=== PATIENT | male | born 1975 | race Caucasian/White ===

== ENCOUNTER 2016-06-17 10:25 | Day surgery (SDC) | payer BC ==
--- NOTE | ~2016-06-17 | EGD ---
EGD REPORT [facility] [address] [address] NAME: DEONDRE ALVES : [birth year] STATUS : REG [facility]#: [id number] AGE: 41 ADM/REG DATE : 06/17/16 MR#: [id number] REPORT SERV DATE: 06/17/16 DICTATED BY: NEGRO QUEEN DATE: 06/17/16 REPORT STATUS : Draft [facility]: [facility] DATE: 06/17/16 Endoscopy Center Patient Name: Deondre Alves Date of : 1975 Attending MD: NEGRO QUEEN MD Procedure Date No Time: 06/17/2016 Procedure: Upper GI endoscopy Indications: Abdominal pain in the left upper quadrant, Heartburn, Suspected esophageal reflux Medicines: as per anesthesia Complications: No immediate complications. Procedure: Pre-Anesthesia Assessment: - ASA Grade Assessment: I - A normal, healthy patient. After obtaining informed consent, the endoscope was passed under direct vision. Throughout the procedure, the patient's blood pressure, pulse, and oxygen saturations were monitored continuously. The GIF H190 [id number] was introduced through the mouth, and advanced to the third part of duodenum. The upper GI endoscopy was accomplished without difficulty. The patient tolerated the procedure well. Findings: The examined esophagus was normal. A single small papule (nodule) with was found in the gastric antrum. The cardia and gastric fundus were normal on retroflexion. The examined duodenum was normal. Impression: - Normal esophagus. - A single small papule (nodule) with was found in the stomach. - Normal examined duodenum. Recommendation: - Perform an endoscopic ultrasound (EUS). Procedure Code(s): --- Professional --- 67647, Esophagogastroduodenoscopy, flexible, transoral; diagnostic, including collection of specimen(s) by brushing or washing, when performed (separate procedure) Diagnosis Code(s): --- Professional --- K31.9, Disease of stomach and duodenum, unspecified R10.12, Left upper quadrant pain R12, Heartburn EGD REPORT [facility] [address] [address] NAME: DEONDRE ALVES : [birth year] STATUS : REG [facility] PAT#: [id number] AGE: 41 ADM/REG DATE : 06/17/16 MR#: [id number] REPORT SERV DATE: 06/17/16 DICTATED BY: NEGRO QUEEN. DATE: 06/17/16 REPORT STATUS : Draft TRANSCRIBED BY: [employer] DATE: 06/17/16 CPT copyright 2013 [employer]. All rights reserved. The codes documented in this report are preliminary and upon graphics software engineer review may be revised to meet current compliance requirements. NEGRO QUEEN MD 06/17/2016 1:39 PM This report has been signed electronically. Number of Addenda: 0 Note Initiated On: 06/17/2016 1:14 PM Scope Withdrawal Time 0 hours 0 minutes 0 seconds [id number] [id number]
--- NOTE | ~2016-06-17 | EGD ---
EGD REPORT [facility] [address] [place] [address] NAME: DEONDRE ALVES : [birth year] STATUS : REG [facility]#: [id number] AGE: 41 ADM/REG DATE : 06/17/16 MR#: [id number] REPORT SERV DATE: 06/17/16 DICTATED BY: NEGRO QUEEN DATE: 06/17/16 REPORT STATUS : Draft TRANSCRIBED BY: [employer] DATE: 06/17/16 Endoscopy Center Patient Name: Deondre Alves Date of : 1975 Attending MD: NEGRO QUEEN MD Procedure Date No Time: 06/17/2016 Procedure: Colonoscopy Indications: Abdominal pain in the left lower quadrant, FH of Colon Cancer -distant relative Medicines: as per anesthesia Complications: No immediate complications. Procedure: Pre-Anesthesia Assessment: - ASA Grade Assessment: I - A normal, healthy patient. After I obtained informed consent, the scope was passed under direct vision. Throughout the procedure, the patient's blood pressure, pulse, and oxygen saturations were monitored continuously. The PCF H190L [id number] was introduced through the anus and advanced to the cecum, identified by appendiceal orifice and ileocecal valve. The colonoscopy was performed without difficulty. The patient tolerated the procedure. The quality of the bowel preparation was fair. Findings: The perianal and digital rectal examinations were normal. Internal hemorrhoids were found during endoscopy and were mild. Impression: - Internal hemorrhoids. Recommendation: - Repeat colonoscopy in 5 years for surveillance. Procedure Code(s): --- Professional --- 57606, Colonoscopy, flexible, proximal to splenic flexure; diagnostic, with or without collection of specimen(s) by brushing or washing, with or without colon decompression (separate procedure) Diagnosis Code(s): --- Professional --- K64.8, Other hemorrhoids R10.32, Left lower quadrant pain Z80.0, Family history of malignant neoplasm of digestive organs CPT copyright 2013 [employer]. All rights reserved. EGD REPORT [facility] [address] [address] NAME: DEONDRE ALVES : [birth year] STATUS : REG [facility]#: [id number] AGE: 41 ADM/REG DATE : 06/17/16 MR#: [id number] REPORT SERV DATE: 06/17/16 DICTATED BY: NEGRO QUEEN. DATE: 06/17/16 REPORT STATUS : Draft TRANSCRIBED BY: [employer] DATE: 06/17/16 The codes documented in this report are preliminary and upon green chain offbearer review may be revised to meet current compliance requirements. NEGRO QUEEN MD 06/17/2016 1:58 PM This report has been signed electronically. Number of Addenda: 0 Note Initiated On: 06/17/2016 1:08 PM Scope Withdrawal Time 0 hours 6 minutes 23 seconds [id number] [id number]
[~2016-06-17 10:25] MED LIST: *DENIES
[2016-07-16] MEDS ORDERED: NORCO1 TA1 PO (09:59)
[2016-07-16] MEDS ORDERED: V2 PO (09:59)
== END 2016-06-17 23:59 | disposition home or self-care (01) ==
LOC: DMU 10:25
PROVIDERS: Internal Medicine Gastroenterology
PROC: 0DJD8ZZ Inspection of Lower Intestinal Tract, Via Natural or Artificial Opening Endoscopic (ICD-10-PCS; principal; 2016-06-17 11:30)
PROC: 0DJ08ZZ Inspection of Upper Intestinal Tract, Via Natural or Artificial Opening Endoscopic (ICD-10-PCS; 2016-06-17 11:30)
DX: K64.8 Other hemorrhoids (principal); K31.9 Disease of stomach and duodenum, unspecified; G43.909 Migraine, unspecified, not intractable, without status migrainosus; Z80.0 Family history of malignant neoplasm of digestive organs; Z87.891 Personal history of nicotine dependence; Z88.0 Allergy status to penicillin; Z98.1 Arthrodesis status

== ENCOUNTER 2016-07-23 08:24 | Day surgery (SDC) | payer BC ==
--- NOTE | ~2016-07-23 | EGD ---
EGD REPORT [facility] [address] [address] NAME: DEONDRE ALVES : [birth year] STATUS : REG [facility]#: [id number] AGE: 41 ADM/REG DATE : 07/23/16 MR#: [id number] REPORT SERV DATE: 07/23/16 DICTATED BY: JOSE HATCH DATE: 07/23/16 REPORT STATUS : Draft TRANSCRIBED BY: [employer] DATE: 07/23/16 Endoscopy Center Patient Name: Deondre Alves Date of : 1975 Attending MD: JOSE HATCH, Procedure Date No Time: 07/23/2016 Procedure: Upper EUS Indications: Gastric deformity on endoscopy/Subepithelial tumor versus extrinsic compression Referring MD: NEGRO QUEEN MD Medicines: Monitored Anesthesia Care Complications: No immediate complications. Estimated blood loss: None. Procedure: Pre-Anesthesia Assessment: - ASA Grade Assessment: I - A normal, healthy patient. After obtaining informed consent, the endoscope was passed under direct vision. Throughout the procedure, the patient's blood pressure, pulse, and oxygen saturations were monitored continuously. The GIF H190 [id number] was introduced through the mouth, and advanced to the second part of duodenum. The Endoscope was introduced through the mouth, and advanced to the second part of duodenum. Findings: Endoscopic Finding : LA Grade B (one or more mucosal breaks greater than 5 mm, not extending between the tops of two mucosal folds) esophagitis with no bleeding was found in the lower third of the esophagus. Biopsies were taken with a cold forceps for histology. Verification of patient identification for the specimen was done. Estimated blood loss was minimal. The exam of the esophagus was otherwise normal. A single small papule (nodule) with no bleeding and no stigmata of recent bleeding was found on the greater curvature of the stomach and in the gastric antrum. The exam of the stomach was otherwise normal. The cardia and gastric fundus were normal on retroflexion. The examined duodenum was endoscopically normal. Endosonographic Finding : A lobulated intramural (subepithelial) lesion was found in the antrum of the stomach. Sonographically, the lesion appeared to originate from the submucosa (Layer 3). The lesion measured 7 mm (in maximum thickness). The lesion also measured 2 mm in diameter. The outer endosonographic borders were well defined. No lymphadenopathy seen. There was no sign of significant endosonographic abnormality in the EGD REPORT [address] [place]. [address] NAME: DEONDRE ALVES : [birth year] STATUS : REG [facility] PAT#: [id number] AGE: 41 ADM/REG DATE : 07/23/16 MR#: [id number] REPORT SERV DATE: 07/23/16 DICTATED BY: JOSE HATCH DATE: 07/23/16 REPORT STATUS : Draft TRANSCRIBED BY: [employer] DATE: 07/23/16 common bile duct. An unremarkable gallbladder was identified. There was no sign of significant endosonographic abnormality in the entire pancreas. The pancreas was well visualized, no masses, no calcifications, the pancreatic duct was well visualized from ampulla to tail, the pancreatic duct was regular in contour. Impression: - LA Grade B reflux esophagitis. Biopsied. - A single small papule (nodule) with no bleeding and no stigmata of recent bleeding was found in the stomach. - Normal examined duodenum. - An intramural (subepithelial) lesion was found in the antrum of the stomach. The lesion appeared to originate from within the submucosa (Layer 3). The diagnosis is aberrant pancreas. - There was no sign of significant pathology in the common bile duct. - There was no sign of significant pathology in the entire pancreas. Recommendation: - Return to previous diet. - Continue present medications. - Use Prilosec (omeprazole) 40 mg PO daily. - Await pathology results. 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 All rights reserved. The codes documented in this report are preliminary and upon client relationship consultant review may be revised to meet current compliance requirements. JOSE HATCH, 07/23/2016 10:55 AM Number of Addenda: 0 EGD REPORT [facility] [address] [place]. [address] NAME: DEONDRE ALVES : [birth year] STATUS : REG [facility] PAT#: [id number] AGE: 41 ADM/REG DATE : 07/23/16 MR#: [id number] REPORT SERV DATE: 07/23/16 DICTATED BY: JOSE HATCH DATE: 07/23/16 REPORT STATUS : Draft TRANSCRIBED BY: [employer] DATE: 07/23/16 Note Initiated On: 07/23/2016 9:02 AM Scope Withdrawal Time 0 hours 0 minutes 0 seconds [id number] [place] [address]
[~2016-07-23 08:24] MED LIST changes: +NORCO1 TA1 PO; +V2 PO
== END 2016-07-23 23:59 | disposition home or self-care (01) ==
LOC: DMU 08:24
PROVIDERS: Internal Medicine Gastroenterology
PROC: BD47ZZZ Ultrasonography of Gastrointestinal Tract (ICD-10-PCS; 2016-07-23)
PROC: 0DJ08ZZ Inspection of Upper Intestinal Tract, Via Natural or Artificial Opening Endoscopic (ICD-10-PCS; principal; 2016-07-23 08:30)
DX: K21.0 Gastro-esophageal reflux disease with esophagitis (principal); K31.9 Disease of stomach and duodenum, unspecified; Q45.3 Other congenital malformations of pancreas and pancreatic duct; Z88.0 Allergy status to penicillin
CPT/HCPCS: 88305; C1725